=== PATIENT | male | born 1990 ===

== ENCOUNTER 2022-06-01 14:56 | Emergency (ER) | payer MEDICAID ==
[~2022-06-01] VITALS: Ht 170.2 cm; Wt 63.0 kg
--- NOTE | 2022-06-01 15:01 | NUR ---
CONSERVATOR PAPERWORK FAXED OVER FROM [facility]. A COPY MADE FOR ADMITTING AND 1 COPY PLACED ON CLIPBOARD.
[2022-06-01] MEDS ORDERED: NO HOME MEDS (16:42)
--- NOTE | 2022-06-01 16:44 | NUR ---
Assumed care from main ER and roomed into bed 25. Pt changed into green scrubs, pt belongings inventoried and placed in locked cabinet. Urine obtained and sent to lab. Pt watching tv at this time. No distress noted.
[2022-06-01 17:26] LABS: URINE AMPHETAMINE SCREEN NEGATIVE (Neg); URINE BARBITUATE SCREEN NEGATIVE (Neg); URINE BENZODIAZEPINES SCREEN NEGATIVE (Neg); URINE CANNABINOID SCREEN NEGATIVE (Neg); URINE COCAINE SCREEN NEGATIVE (Neg); URINE METHADONE SCREEN NEGATIVE (Neg); URINE OPIATE SCREEN NEGATIVE (Neg); URINE PHENCYCLIDINE SCREEN NEGATIVE (Neg)
--- NOTE | 2022-06-01 17:50 | NUR ---
Pt refusing to have his labs drawn, public dylan Frank notified and is speaking with the pt now on the phone.
--- NOTE | 2022-06-01 17:53 | NUR ---
Pt conservator; Margarita Wahl [phone] After hours [phone]
[2022-06-01 18:04] LABS: CLARITY,URINE CLEAR (Clear); COLOR,URINE YELLOW (Yellow); GLUCOSE, URINE NEGATIVE (Neg); KETONES,URINE NEGATIVE (Neg); LEUKOCYTE ESTERASE ,URINE NEGATIVE (Neg); NITRITES, URINE NEGATIVE (Neg); OCCULT BLOOD,URINE NEGATIVE (Neg); PROTEIN,URINE NEGATIVE (Neg); UROBILINOGEN,URINE 0.2 E.U/dL (0.2-1.0)
[2022-06-01 18:08] LABS: UA COLLECTION TYPE VOIDED
--- NOTE | 2022-06-01 18:20 | NUR ---
1:1 done at bedside. Pt denies SI/HI, A/VH. Pt cooperative with nurse. Labs have been drawn. Pt eating dinner at bedside, no distress noted.
[2022-06-01 18:28] LABS: BASOPHILS # (AUTO) 0.1 X10'3 (0-0.2); BASOPHILS % (AUTO) 0.9 % (0-1); EOSINOPHILS # (AUTO) 0.3 X10'3 (0-0.9); EOSINOPHILS % (AUTO) 2.6 % (0-6); HEMATOCRIT 42.9 % (42.0-52.0); HEMOGLOBIN 14.6 g/dl (14.0-17.9); LYMPHOCYTES # (AUTO) 2.6 X10'3 (1.1-4.8); LYMPHOCYTES % (AUTO) 23.8 % (21-51); MEAN CORPUSCULAR HEMOGLOBIN 29.4 PG (27.0-31.0); MEAN CORPUSCULAR VOLUME 86.5 FL (78-98); MEAN PLATELET VOLUME 7.2 FL (7.4-10.4); MONOCYTES # (AUTO) 0.9 X10'3 (0-0.9); MONOCYTES % (AUTO) 8.6 % (2-12); NEUTROPHILS % (AUTO) 64.1 % (42-75); PLATELET COUNT 313 X10'3 (140-440); RED BLOOD COUNT 4.95 X10'6 (4.70-6.10); RED CELL DISTRIBUTION WIDTH 13.4 % (11.5-14.5)
[2022-06-01 18:41] LABS: ALANINE AMINOTRANSFERASE 76 U/L (12-78); ALBUMIN 4.1 G/DL (3.4-5.0); ALBUMIN/GLOBULIN RATIO 1.3 (1.1-1.5); ALKALINE PHOSPHATASE 77 IU/L (46-116); ANION GAP 7 (8-16); ASPARTATE AMINO TRANSFERASE 44 U/L (10-37); BILIRUBIN,TOTAL 0.4 MG/DL (0.1-1.0); BLOOD UREA NITROGEN 15 MG/DL (7-18); BUN/CREATININE RATIO 19.2 (10.0-20.0); CALCIUM 8.7 MG/DL (8.5-10.1); CHLORIDE 105 MMOL/L (99-107); CREATININE 0.78 MG/DL (0.60-1.10); GLUCOSE 121 MG/DL (70-104); POTASSIUM 3.8 MMOL/L (3.5-5.1); SODIUM 140 MMOL/L (135-145); TOTAL CARBON DIOXIDE 28.3 MMOL/L (24-32); TOTAL PROTEIN 7.3 G/DL (6.4-8.2); eGFR > 90 ML/MIN
[2022-06-01 18:51] LABS: ETHANOL < 0.010 GM/DL (0.0-0.010)
--- NOTE | 2022-06-01 19:02 | NUR ---
Pt cooperative with care, denies MH symptoms, wants to rest.
--- NOTE | 2022-06-01 20:49 | NUR ---
Packet faxed to [facility] office.
--- NOTE | 2022-06-01 21:57 | NUR ---
Pt appears to be sleeping.
--- NOTE | 2022-06-01 23:04 | NUR ---
Pt appears to be sleeping.
--- NOTE | 2022-06-02 01:10 | NUR ---
Pt appears to be sleeping.
--- NOTE | 2022-06-02 01:31 | NUR ---
Pt sitting up in bed, appears to be responding to IS. Denies AH, denies anxiety, declines any medication and requests to look at some magazines.
--- NOTE | 2022-06-02 05:45 | NUR ---
Pt has been awake in bed, denies any AH/VH.
--- NOTE | 2022-06-02 06:33 | NUR ---
Received pt. awake and laying quietly in bed at the beginning of the shift.
--- NOTE | 2022-06-02 07:10 | NUR ---
tech resent packet to [facility]
--- NOTE | 2022-06-02 08:27 | NUR ---
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 PT WAS MOVED FROM OF25 TO ER14.
--- NOTE | 2022-06-02 08:58 | NUR ---
RN assumed care of pt in ER bed 14. Pt is calm and cooperative. Dressed in green scrubs. Room check performed per hold protocol. Pt denies SI or thoughts of self-harm. Pt comfortable and resting quietly, denies needs at this time.
--- NOTE | 2022-06-02 11:08 | NUR ---
PT HAS BEEN ACCEPTED TO [facility] AND WILL BE PICKED UP AT [facility]OX 2000 THIS EVENING.
--- NOTE | 2022-06-02 11:17 | NUR ---
Pt accepted to [facility]. Tentatively planning on 7:30 pm pick-up due to accepting facility.
[2022-06-02 18:11] VITALS: BP 98/67
== END 2022-06-02 19:46 ==
LOC: ER 14:56
DX: F81.81 Disorder of written expression (principal); Z20.822 Contact with and (suspected) exposure to COVID-19
CPT/HCPCS: 36415; 80053; 80305; 80320; 81003; 84443; 85025; 87811; 99285